=== PATIENT | male | born 1960 | race Caucasian/White ===

== ENCOUNTER 2021-03-12 12:24 | Emergency (ER) | payer OTHER ==
[~2021-03-12 12:24] MED LIST: LIPITOR40 MG PO; MYRBETRIQ50 MG PO; NAPROXEN500 MG PO
[2021-03-12 13:03] LABS: BASOPHIL 0.2 % (0-2); EOSINOPHIL 0 % (0-5); HCT 47.1 % (42.0-52.0); HGB 15.7 g/dl (13.2-18.0); LYMPHOCYTE 8.8 % (15-48); MCH 28.7 pg (25.0-31.0); MCHC 33.3 g/dL (32.0-36.0); MCV 86.1 fL (78.0-100.0); MPV 9.1 fL (6.0-9.5); NEUTROPHIL 83.5 % (41-80); NRBC 0; PLT 221 K/uL (150-400); RBC 5.47 M/uL (4.70-6.00); RDW 13.3 % (11.5-14.0); WBC 12.9 K/uL (4.0-10.5)
[2021-03-12 13:08] LABS: INR 1.09 (0.9-1.2); PROTHROMBIN TIME 13.4 SECONDS (11.4-13.6)
[2021-03-12 13:09] LABS: PTT 38.5 SECONDS (22.2-34.7)
[2021-03-12 13:10] LABS: D-DIMER 0.54 ug/mLFEU (0.00-0.41)
[2021-03-12 13:21] LABS: ALBUMIN 3.4 g/dL (3.4-5.0); BILIRUBIN - TOTAL 0.6 mg/dL (0.2-1.0); BUN/CREAT RATIO (CALC) 13.9 RATIO; CREATININE 0.72 mg/dL (0.67-1.17); GLOBULIN (CALCULATION) 3.9 g/dL; POTASSIUM 3.7 mmol/L (3.5-5.1); TOTAL PROTEIN 7.3 g/dL (6.4-8.2)
[2021-03-12 13:28] LABS: LACTIC ACID 1.5 mmol/L (0.4-1.9)
[2021-03-12 14:09] LABS: BILIRUBIN NEGATIVE (NEGATIVE); BLOOD NEGATIVE Ery/uL (NEGATIVE); CLARITY CLEAR (CLEAR); COLOR YELLOW (YELLOW); GLUCOSE (U) NORMAL (NORMAL); LEUKOCYTES NEGATIVE Leu/uL (NEGATIVE); NITRITE NEGATIVE (NEGATIVE); PROTEIN NEGATIVE (NEGATIVE); UROBILINOGEN 0.2 mg/dL (0.2-1.0)
[2021-03-12] MEDS ORDERED: CEFDINIR300 MG PO (16:20)
== END 2021-03-12 16:49 | disposition home or self-care (01) ==
LOC: FER 12:24
PROVIDERS: Emergency Medicine
DX: R07.89 Other chest pain (principal); J32.9 Chronic sinusitis, unspecified; L03.116 Cellulitis of left lower limb; I10 Essential (primary) hypertension; Z20.822 Contact with and (suspected) exposure to COVID-19
CPT/HCPCS: 36415; 71045; 71275; 80053; 81003; 83605; 84484; 85025; 85379; 85610; 85730; 93005; 93971; J2405; J7030; U0002